=== PATIENT | female | born 1960 | race Caucasian/White ===

== ENCOUNTER 2019-07-07 19:37 | Emergency (ER) | payer OTHER ==
[2019-07-07] MEDS ORDERED: traMADol 50 MG Tab PO ONE (19:38)
[2019-07-07] MEDS ORDERED: Naproxen 250 MG Tab PO ONE (19:38)
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
== END 2019-07-07 22:40 | disposition home or self-care (01) ==
LOC: FB.ED 19:37
DX: M54.6 Pain in thoracic spine (principal); R07.9 Chest pain, unspecified; M25.562 Pain in left knee; V43.53XA Car driver injured in collision with pick-up truck in traffic accident, initial encounter
CPT/HCPCS: 71250; 72125; 72128; 73562; 99285; A9270